=== PATIENT | male | born 1975 | race Caucasian/White ===

== ENCOUNTER 2017-04-06 08:04 | Emergency (ER) | payer MEDICARE ==
--- NOTE | ~2017-04-06 | ER ---
PATIENT'S NAME: JEF GUZMAN [facility] AGE: 41 Y [address] ROOM: [place] [address] LOCATION: [facility] ADMIT DATE: 04/06/2017 ER/Outpatient Report DISCHARGE DATE: 04/06/2017 FAMILY PHYSICIAN: Michael Brody MD ATTENDING PHYSICIAN: Henrietta Nicolas Time of arrival: 0804 hours. Time of evaluation: 0810 hours. CHIEF COMPLAINT: Leg pain. HISTORY OF PRESENT ILLNESS: The patient is a 41-year-old male, who presents to the emergency department today with chief complaint of leg pain. The patient does have a history of multiple sclerosis. He use a motorized wheelchair. He reports this pain is just gotten worse lately. He reports he has not been taking his Xarelto because it cost too much money. He denies any fevers or chills. No nausea or vomiting. No diarrhea or constipation. No chest pain. No shortness of breath. PAST MEDICAL HISTORY: 1. Multiple sclerosis. 2. DVT. 3. Factor five Leiden. PAST SURGICAL HISTORY: None. SOCIAL HISTORY: The patient smokes half pack per day. Does use chewing tobacco. Denies any alcohol or illicit drug use. ALLERGIES: AUGMENTIN. MEDICATIONS: None. PRIMARY CARE DOCTORS: Michael Brody M.D. REVIEW OF SYSTEMS: All systems are reviewed by myself and negative with the exception of those discussed in HPI and past medical history. PATIENT'S NAME: JEF GUZMAN [facility] AGE: 41 Y [address] ROOM: [place] [address] LOCATION: [facility] ADMIT DATE: 04/06/2017 ER/Outpatient Report DISCHARGE DATE: 04/06/2017 FAMILY PHYSICIAN: Michael Brody MD ATTENDING PHYSICIAN: Henrietta Nicolas PHYSICAL EXAMINATION: VITAL SIGNS: Weight 106.3 kg. Blood pressure 146/85, pulse 94, respiratory rate 16, temperature 98.4, oxygen saturation 97% on room air. GENERAL: The patient is a 41-year-old male, who appears older than stated age in no acute distress. HEENT: Normocephalic and atraumatic. Pupils are equal, round, and reactive to light. Oropharynx is clear. NECK: Supple. No nuchal rigidity. CARDIOVASCULAR: Regular rate and rhythm. LUNGS: Clear to auscultation. ABDOMEN: Soft, nontender, and nondistended. No rebound, rigidity, or guarding. MUSCULOSKELETAL: The patient has no bony tenderness to palpation, lower extremities. SKIN: Warm and dry. Patient does have multiple bed bugs noted crawling on his clothes and skin. LABORATORY DATA AND X-RAYS: Ultrasound of the bilateral lower extremities reveals chronic right leg DVT, no acute. There is a chronic DVT in the left leg to the knee, no acute DVT noted. CBC: White blood cell count 12.3, otherwise, normal. Coags are normal. CMP is unremarkable. LFTs are normal. IMPRESSION: 1. Acute on chronic right leg pain. 2. Bed bugs. 3. Initial visit. EMERGENCY DEPARTMENT COURSE: The patient brought back to the examination room. Seen and evaluated by myself. Laboratory analysis and imaging are obtained as described above. I have discussed the results with the patient. He is in no pain unless he attempts to stand on his leg. I have contacted Dr. Brody, the patient's primary care doctor. He does request the patient go to his office now. He does report he has a Xarelto for him there. I have discussed return to care instructions including chest pain, shortness of breath, or any other concerns to return to the emergency department as soon as possible. The patient is agreeable without further questions at this time. DISPOSITION: The patient is discharged to home in good condition. HENRIETTA NICOLAS DO PATIENT'S NAME: JEF GUZMAN [facility] AGE: 41 Y [address] ROOM: [place] [address] LOCATION: [facility] ADMIT DATE: 04/06/2017 ER/Outpatient Report DISCHARGE DATE: 04/06/2017 FAMILY PHYSICIAN: Michael Brody MD ATTENDING PHYSICIAN: Henrietta Nicolas/flavia /[id number] d: 04/06/17 1143 t: 04/07/17 0654, OUTPATIENT REPORT
--- NOTE | ~2017-04-06 | ENPV ---
Vascular Lower Extremities DVT Study Procedure Demographics Patient Name JEF GUZMAN Date of Study 04/06/2017 Patient Number [id number] Gender Male Date of 1975 Age 41 Visit Number [id number] Height Accession Number [id number] Weight Room Number BSA BMI Referring Mary Grace Rodriguez Quita Robert MD Physician MD Physician Fidencio Pizarro MD Physician Ordering Physician Fidencio Pizarro MD Business Line Controller Drop Clipper Soniya Reece RVT Conclusions Summary History of DVT. There is chronic deep vein thrombosis from the right common femoral vein through the calf veins. There is chronic deep vein thrombosis from the left common femoral vein through the popliteal vein. Procedure Type of Study: Veins:Lower Extremities DVT Study, Venous Duplex Lower Extremity Bilateral. Indications for Study:Pain in Limb and DVT, History of. Appropriate Use Criteria:9 Patient Status:Routine. Study Location:ER. Technical Quality:Adequate visualization. Velocities are measured in cm/s ; Diameters are measured in cm Right Lower Extremities DVT Study Measurements Right 2D and Doppler Measurements + + + + +------+------+ + !Location !Visualized!Compressibility!Thrombosis!Signal!Reflux!Reflux ! ! ! ! ! ! ! !(sec) ! + + + + +------+------+ + !GSV Thigh !Yes !Partial !Chronic ! ! ! ! + + + + +------+------+ + !Common !Yes !Partial !Chronic ! ! ! ! !Femoral ! ! ! ! ! ! ! + + + + +------+------+ + !Prox !Yes !Partial !Chronic ! ! ! ! !Femoral ! ! ! ! ! ! ! + + + + +------+------+ + !Mid Femoral!Yes !Partial !Chronic ! ! ! ! + + + + +------+------+ + !Dist !Yes !Partial !Chronic ! ! ! ! !Femoral ! ! ! ! ! ! ! + + + + +------+------+ + !Popliteal !Yes !Partial !Chronic ! ! ! ! + + + + +------+------+ + !PTV !Yes !Partial !Chronic ! ! ! ! + + + + +------+------+ + !Peroneal !Yes !Partial !Chronic ! ! ! ! + + + + +------+------+ + Left Lower Extremities DVT Study Measurements Left 2D and Doppler Measurements + + + + +------+------+ + !Location !Visualized!Compressibility!Thrombosis!Signal!Reflux!Reflux ! ! ! ! ! ! ! !(sec) ! + + + + +------+------+ + !GSV Thigh !Yes !Yes !None ! ! ! ! + + + + +------+------+ + !Common !Yes !Partial !Chronic ! ! ! ! !Femoral ! ! ! ! ! ! ! + + + + +------+------+ + !Prox !Yes !No !Chronic ! ! ! ! !Femoral ! ! ! ! ! ! ! + + + + +------+------+ + !Mid Femoral!Yes !No !Chronic ! ! ! ! + + + + +------+------+ + !Dist !Yes !No !Chronic ! ! ! ! !Femoral ! ! ! ! ! ! ! + + + + +------+------+ + !Popliteal !Yes !Partial !Chronic ! ! ! ! + + + + +------+------+ + !PTV !Yes ! ! ! ! ! ! + + + + +------+------+ + !Peroneal !Yes ! ! ! ! ! ! + + + + +------+------+ + Signature dtt: LISANDRA WHITE dtquita: 04/06/17 0843 Physician Self Edit
[~2017-04-06 08:04] MED LIST: BACLOFEN SUB-Q; NICODERM/HABITR21 MG TRANS; SOLU-MEDROL1000 M1 IV; SOLU-MEDROL500 MG IV; TECFIDERA240 MG PO; TYLENOL EXTRA500 MG PO; VIAGRA25 MG PO; XARELTO20 MG PO
[2017-04-06 09:06] LABS: BASOPHIL # 0.1 K/uL (0.0-0.2); BASOPHIL % 0.6 %; EOSINOPHIL # 0.2 K/uL (0.0-0.5); EOSINOPHIL % 1.6 %; HEMATOCRIT 38.5 % (37.0-53.0); HEMOGLOBIN 12.2 g/dL (12.0-17.0); IMMATURE GRANULOCYTE % 0.3 %; LYMPHOCYTE # 1.8 K/uL (0.8-4.0); LYMPHOCYTE % 14.5 %; MCH 27.7 pg (27.0-34.0); MCHC 31.7 gm/dL (32.0-36.5); MCV 87.5 fl (83.0-98.0); MONOCYTE # 2.1 K/uL (0.0-1.0); MONOCYTE % 16.9 %; MPV 9.1 fl (9.4-12.4); NEUTROPHIL # (ANC) 8.1 K/uL (1.4-9.0); NEUTROPHIL % 66.1 %; NRBC % 0 /100WBC (0-0.00); PLATELET COUNT 325 K/uL (150-450); RDW-CV 13.3 % (11.9-14.6); WBC 12.3 K/uL (4.0-11.0)
[2017-04-06 09:15] LABS: INR - (THERAPEUTIC) 0.98 (0.92-1.07); PROTIME 10.3 SECONDS (9.8-11.4); PTT 27 SECONDS (25-32)
[2017-04-06 09:23] LABS: ALBUMIN 3.2 gm/dL (3.5-5.0); ALK PHOS 131 IU/L (33-138); ALT 22 IU/L (12-78); ANION GAP 12.8 (10.0-19.0); AST 11 IU/L (10-40); BLOOD UREA NITROGEN 8 mg/dL (6-24); CALCIUM 8.8 mg/dL (8.5-10.5); CHLORIDE 103 mMol/L (96-110); CO2 26 mMol/L (22-32); ESTIMATED GFR (MDRD EQUATION) > 60; POTASSIUM 3.8 mMol/L (3.7-5.1); SODIUM 138 mMol/L (135-145); TOTAL BILIRUBIN 0.3 mg/dL (0.0-1.5); TOTAL PROTEIN 7.5 g/dL (6.0-8.4)
== END 2017-04-06 10:38 | disposition disaster alternative care site (69) ==
LOC: GMED 08:04
PROVIDERS: Emergency Medicine
DX: M79.604 Pain in right leg (principal); G89.29 Other chronic pain; G35 Multiple sclerosis; F17.210 Nicotine dependence, cigarettes, uncomplicated; F17.220 Nicotine dependence, chewing tobacco, uncomplicated; Z88.8 Allergy status to other drugs, medicaments and biological substances

== ENCOUNTER 2017-04-20 12:03 | Emergency (ER) | payer MEDICARE ==
--- NOTE | ~2017-04-20 | ER ---
PATIENT'S NAME: JEF GUZMAN [facility] AGE: 41 Y [address] ROOM: [place] [address] LOCATION: ED ADMIT DATE: 04/20/2017 ER/Outpatient Report DISCHARGE DATE: 04/20/2017 FAMILY PHYSICIAN: Michael Brody MD ATTENDING PHYSICIAN: Anne-Marie Mathews Time of Arrival: 1206 hours. Time of Evaluation: 1215 hours. CHIEF COMPLAINT: Dizziness, vision changes. HISTORY OF PRESENT ILLNESS: The patient states he feels as though the room is spinning. It has been going on pretty constant for the past 3 days. However, he said he did see Dr. Ash yesterday and did not have symptoms yesterday and did not talk to Dr. Ash about the symptoms at his visit. He has not contacted Dr. Ash or Dr. Brody regarding the symptoms that he is currently having. He states [facility] Solu-Medrol infusion done and then came right to the ER. He denies being nauseated. He has not had any vomiting. He has not fallen. He has not had any change in his symptoms. He thinks this is related to his MS. ALLERGIES: AUGMENTIN. CURRENT MEDICATIONS: On his chart and reviewed by me. He states he is taking Xarelto as prescribed. PAST MEDICAL HISTORY: DVT of the lower legs, MS, factor V Leiden. 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 SOCIAL HISTORY: He does vapor but denies use of drugs and alcohol. Primary provider is Dr. Brody and Dr. Ash. He lives with his mom who helps with his cares. REVIEW OF SYSTEMS: All negative other than those mentioned in the HPI. PHYSICAL EXAMINATION: VITAL SIGNS: He states he weighs 250 pounds, blood pressure is 156/91, pulse PATIENT'S NAME: JEF GUZMAN [facility] AGE: 41 Y [address] ROOM: [place] [address] LOCATION: [facility] ADMIT DATE: 04/20/2017 ER/Outpatient Report DISCHARGE DATE: 04/20/2017 FAMILY PHYSICIAN: Michael Brody MD ATTENDING PHYSICIAN: Anne-Marie Mathews of 85, respirations 18, temperature of 97.7, O2 saturation is 92% on room air. GENERAL: He is awake, alert, and oriented x4. SKIN: [place], warm, and dry. RESPIRATIONS: Even and nonlabored. Pupils are equal and reactive to light. Extraocular movement is intact. Negative nystagmus. TMs are pearly hanson. Nasal is clear. Oropharynx is clear. NECK: Supple. No lymphadenopathy. LUNGS: Lung sounds are clear throughout. HEART: Regular rate and rhythm. Moves upper extremities with a fine tremor. Moves lower extremities weakly. IMPRESSION: Dizziness. PLAN: Discussed with the patient since he just received Solu-Medrol 250 mg IV over the past 2 hours that I did not want to treat him with some additional Solu- Medrol at this time. [place] he needed to give that dose a chance to work. If the dizziness does not improve within the next 2 to 3 days, he should contact Dr. Ash or Dr. Brody. He verbalized understanding. MARYAN JO APRN FOR MD BATSHEVA MURRAY/flavia /[id number] d: 04/20/171999 t: 04/23/17 [facility], OUTPATIENT REPORT
== END 2017-04-20 12:43 | disposition disaster alternative care site (69) ==
LOC: GMED 12:03
DX: R42 Dizziness and giddiness (principal); D68.51 Activated protein C resistance; Z98.890 Other specified postprocedural states; Z86.718 Personal history of other venous thrombosis and embolism; Z79.01 Long term (current) use of anticoagulants; Z88.1 Allergy status to other antibiotic agents; Z88.8 Allergy status to other drugs, medicaments and biological substances

== ENCOUNTER 2017-07-15 10:09 | Emergency (ER) | payer MEDICARE ==
--- NOTE | ~2017-07-15 | ER ---
PATIENT'S NAME: JEF GUZMAN [facility] AGE: 41 Y [address] ROOM: [place] [address] LOCATION: ED ADMIT DATE: 07/15/2017 ER/Outpatient Report DISCHARGE DATE: 07/15/2017 FAMILY PHYSICIAN: Michael Brody MD ATTENDING PHYSICIAN: Anne-Marie Watkins Time of Arrival: 1009 hours. Time Seen: 1047 hours. IDENTIFICATION: A 41-year-old male. CHIEF COMPLAINT: Dizziness. HISTORY OF PRESENT ILLNESS: The patient is a 41-year-old male with dizziness for one and half days. He said it is a spinning sensation. No headache. He does have a history of MS and this feels like an MS exacerbation. No other symptoms associated with it. He does not walk. He rides in a scooter. ALLERGIES: TO AUGMENTIN. MEDICATIONS: Currently on Xarelto, Solu-Medrol infusion 250 mg one time a month at the [facility]. Last infusion he thought 2 weeks ago. It was indeed July 07. PAST MEDICAL HISTORY: MS for 20 years, factor V Leiden deficiency on chronic anticoagulation, and a history of DVT. PAST SURGICAL HISTORY: Corneal transplant and right and left knee arthroscopy. The patient has a port left upper chest and he has an IVC filter. He also has a brain stimulator. SOCIAL HISTORY: The patient lives in [place] with his mother. He is disabled. Tobacco use, 1 pack per day for 26 years. Alcohol use, denies. Drug use, denies. PRIMARY CARE DOCTOR: Michael Brody MD and Dr. Ash his neurologist, who has not seen him for PATIENT'S NAME: JEF GUZMAN [facility] AGE: 41 Y [address] ROOM: [place] [address] LOCATION: [facility] ADMIT DATE: 07/15/2017 ER/Outpatient Report DISCHARGE DATE: 07/15/2017 FAMILY PHYSICIAN: Michael Brody MD ATTENDING PHYSICIAN: Anne-Marie Watkins several months. REVIEW OF SYSTEMS: All systems reviewed and negative other than what is noted in the HPI. PHYSICAL EXAMINATION: VITAL SIGNS: Height 5 feet 8 inches, weight 100.4 kg, blood pressure 133/70, pulse 63, respirations 16, temperature 97, and sats 98%. GENERAL: A 41-year-old male, in no acute distress. HEAD: Normocephalic, atraumatic. EARS: TMs translucent both ears. EYES: Pupils equal and reactive to light and accommodation. Extraocular movements intact. No nystagmus, however, this does reproduce his symptoms. Oropharynx is benign. NECK: Supple. No lymphadenopathy. LUNGS: Clear to auscultation. HEART: Regular rate and rhythm. ABDOMEN: Bowel sounds present. Soft, nondistended, and nontender. SKIN: The patient does have a fine rash on his face. NEURO: The patient is alert and oriented x4. Cranial nerves 2 through 12 grossly intact. Motor strength 5/5 in the upper extremities, 3/5 in the lower extremities. The patient does have a tremor. EXTREMITIES: No lower extremity edema. He has bedbugs that are crawling on the sheets in the bed and on his scooter. Visible bedbugs, large in size. LABORATORY DATA: Sodium 141, potassium 3.9, chloride 111, CO2 of 24, BUN 7, creatinine 0.7, and blood sugar 91. Liver enzymes normal. Cardiac enzymes x1 are negative. CRP less than 0.29. Hemoglobin 9.7, hemoglobin April 06 was 12.2, hematocrit 31.1. Microcytic indices platelets 418, white count 9.3 with a normal differential. Sedimentation rate 29. INR 1.01. IMAGING DATA: Chest x-ray, one-view left-sided infusion pump, otherwise stable. Head CT without contrast, [id number] atrophy and moderate periventricular white matter disease stable, stable left-sided deep brain stimulator. No hemorrhages, masses or extraaxial fluid collections. EKG, normal sinus rhythm at 68 beats per minute. IMPRESSION: Multiple sclerosis exacerbation. PLAN: 1. Discussed with Dr. Brody, his primary care physician who gave him 250 mg of IV Solu-Medrol over 2 hours here in the emergency room. Discharged PATIENT'S NAME: JEF GUZMAN [facility] AGE: 41 Y [address] ROOM: [place], [place] [address] LOCATION: [facility] ADMIT DATE: 07/15/2017 ER/Outpatient Report DISCHARGE DATE: 07/15/2017 FAMILY PHYSICIAN: Michael Brody MD ATTENDING PHYSICIAN: Anne-Marie Watkins home and followup with Dr. Brody in 1 to 2 days. 2. Bedbugs. Environmental Services notified here. His electric wheelchair was taken for the septic tank service technician spray. The patient was notified. The patient was given a handout on bedbugs. 3. Microcytic hyperchromic anemia. Follow up with Dr. Brody in 1 to 2 days. The patient understands and agrees and all questions have been answered. ANNE-MARIE WATKINS MD CAR/modl /[id number] d: 07/15/172306 t: 07/17/17 1500, OUTPATIENT REPORT
[2017-07-15 11:46] LABS: BILIRUBIN URINE NEGATIVE (NEGATIVE); BLOOD URINE NEGATIVE /UL (NEGATIVE); COLOR URINE YELLOW (YELLOW); GLUCOSE URINE NEGATIVE (NEGATIVE); KETONE URINE NEGATIVE (NEGATIVE); LEUKOCYTES URINE 100 /UL (NEGATIVE); NITRITE URINE POSITIVE (NEGATIVE); PROTEIN URINE NEGATIVE (NEGATIVE); SPEC GRAVITY URINE 1.015 (1.003-1.035); TURBIDITY URINE 2+ (CLEAR); UROBILINOGEN URINE NORMAL (NORMAL)
[2017-07-15 11:52] LABS: EPITHELIAL URINE NEGATIVE #/HPF (NEGATIVE); RBC URINE NEGATIVE #/HPF (NEGATIVE)
[2017-07-15 11:53] LABS: BACTERIA URINE FEW (NEGATIVE)
[2017-07-15 11:55] LABS: BASOPHIL # 0.1 K/uL (0.0-0.2); BASOPHIL % 0.6 %; EOSINOPHIL # 0.2 K/uL (0.0-0.5); EOSINOPHIL % 1.9 %; HEMATOCRIT 31.1 % (37.0-53.0); HEMOGLOBIN 9.7 g/dL (12.0-17.0); IMMATURE GRANULOCYTE % 0.4 %; LYMPHOCYTE # 2.2 K/uL (0.8-4.0); LYMPHOCYTE % 23.7 %; MCH 24.4 pg (27.0-34.0); MCHC 31.2 gm/dL (32.0-36.5); MCV 78.3 fl (83.0-98.0); MONOCYTE # 1.1 K/uL (0.0-1.0); MONOCYTE % 11.5 %; MPV 9.1 fl (9.4-12.4); NEUTROPHIL # (ANC) 5.7 K/uL (1.4-9.0); NEUTROPHIL % 61.9 %; NRBC % 0 /100WBC (0-0.00); PLATELET COUNT 418 K/uL (150-450); RBC 3.97 M/uL (4.00-6.00); RDW-CV 14.4 % (11.9-14.6); WBC 9.3 K/uL (4.0-11.0)
[2017-07-15 12:03] LABS: INR - (THERAPEUTIC) 1.01 (0.92-1.07); PROTIME 10.6 SECONDS (9.8-11.4); PTT 25 SECONDS (25-32)
[2017-07-15 12:12] LABS: ALBUMIN 3.3 gm/dL (3.5-5.0); ALK PHOS 110 IU/L (33-138); ALT 19 IU/L (12-78); ANION GAP 9.9 (10.0-19.0); AST 7 IU/L (10-40); BLOOD UREA NITROGEN 7 mg/dL (6-24); CALCIUM 8.3 mg/dL (8.5-10.5); CHLORIDE 111 mMol/L (96-110); CO2 24 mMol/L (22-32); CPK 48 IU/L (35-332); CREATININE 0.7 mg/dL (0.6-1.3); MAGNESIUM 2.2 mg/dL (1.8-2.6); POTASSIUM 3.9 mMol/L (3.7-5.1); SODIUM 141 mMol/L (135-145); TOTAL BILIRUBIN 0.3 mg/dL (0.0-1.5); TOTAL PROTEIN 7.1 g/dL (6.0-8.4)
== END 2017-07-15 14:30 | disposition disaster alternative care site (69) ==
LOC: GMED 10:09
PROVIDERS: Family Medicine
DX: G35 Multiple sclerosis (principal); F17.210 Nicotine dependence, cigarettes, uncomplicated; Z88.1 Allergy status to other antibiotic agents; Z79.899 Other long term (current) drug therapy; Z98.890 Other specified postprocedural states
CPT/HCPCS: J2930; J7050